=== PATIENT | female | born 1940 | race Caucasian/White ===

== ENCOUNTER 2018-03-26 09:22 | Inpatient (IN) | payer OTHER, MEDICARE ==
--- NOTE | 2018-03-26 09:50 | EDPHY ---
H & P Time Seen by Provider: 03/26/18 09:44 HPI/ROS: Chief complaint. Nausea vomiting and diarrhea HPI. A 77-year-old female nausea vomiting diarrhea for 3-4 weeks. It is worse with eating. She has"light pain" in the upper abdomen on occasion after eating. She has loose stools about twice per day. No blood. Previously she had been using a lot of of Aleve and ibuprofen for chronic right hip pain but over the past several months she has been using Tylenol at the encouragement of her regular physician. She has no chest discomfort or trouble breathing. She thinks possibly bad food was the initial cause. No recent travel. She does tell me she has a sensitive stomach to [place] and spicy food. She knows that tomato sauce cerna her stomach. She has had similar symptoms previously. ROS Constitutional. no fever/chills, no weakness Eyes. no problems with vision ENT. no sore throat, no nasal drainage Cardiovascular. no chest pain Respiratory. no shortness of breath, no cough Abdominal. Upper abdominal pain with nausea vomiting and diarrhea . no problems urinating MS. no calf pain/swelling, no neck/back pain, no joint pain Skin. no rash Lymph. no swollen glands Neuro. no headache, no dizziness, no difficulty walking or with speech Past Medical/Surgical History: Past medical history hypertension, dyslipidemia, arthritis Social History: , nonsmoker, no alcohol Smoking Status: Never smoked Physical Exam: General Appearance: Alert pleasant well-developed female mild distress vital signs significant for initial heart rate 106 Eyes: Pupils equal and round no pallor or injection. ENT, Mouth: Mucous membranes are moist. Respiratory: There are no retractions, lungs are clear to auscultation. Cardiovascular: Regular rate and rhythm. Gastrointestinal: Abdomen is soft with very mild tenderness in the epigastrium. No masses. Normal bowel sounds Neurological: Awake and alert, sensory and motor exams grossly normal. Skin: Warm and dry, no rashes. Musculoskeletal: Neck is supple nontender. Extremities symmetrical, full range of motion. Psychiatric: Patient is oriented X 3, there is no agitation. Constitutional: Initial Vital Signs Temperature (C) 36.8 C 03/26/18 09:28 Heart Rate 106 H 03/26/18 09:28 Respiratory Rate 16 03/26/18 09:28 Blood Pressure 115/84 H 03/26/18 09:28 O2 Sat (%) 91 L 03/26/18 09:28 O2 Delivery Mode Room Air Allergies/Adverse Reactions: No Known Allergies Allergy (Verified 03/26/18 09:27) Home Medications: Medication Instructions Recorded LORazepam [Ativan (*)] 0.25 mg PO DAILY PRN 12/27/15 Simvastatin [Zocor] 40 mg PO DAILY 12/27/15 Acetaminophen [Tylenol 325mg (*)] 325 mg PO DAILY PRN 03/26/18 Calcium Carbonate [Oyster Shell 500 mg PO DAILY 03/26/18 Calcium 500 mg (*)] Cephalexin [Keflex (*)] 500 mg PO TID 03/26/18 Hydrochlorothiazide [HCTZ (*)] 25 mg PO DAILY 03/26/18 Metoprolol Tartrate [Lopressor 25 25 mg PO BID 03/26/18 mg (*)] Ondansetron HCl [Zofran] 4 mg PO Q4HRS PRN 03/26/18 Medical Decision Making - Diagnostics Imaging Results: Imaging Impressions Abdomen Ultrasound 03/26/18 10:06 Impression: 1. Cholelithiasis with 3 large gallstones up to 4 cm, including one lodged in the gallbladder neck region. 2. No gallbladder wall thickening, pericholecystic fluid, or biliary ductal dilation. 3. Atherosclerotic tortuous aorta without aneurysm. Findings and recommendations discussed with Emergency Department physician, Topher Albright PA-C at 1108 hours on March 26, 2018. Final report concurs with initial preliminary interpretation. Patient on ultrasound of the right upper quadrant has multiple gallstones with a 4 cm stone impacted in the neck of her gallbladder. Common bile duct 5-6 mm in size Procedures: IV normal saline. Pepcid IV ED Course/Re-evaluation: The patient and I discussed imaging and lab results. We discussed treatment plan including recommendation for surgical consultation. She expresses understanding and agreement I consulted and discussed the case with Dr. Toussaint for surgery who will see the patient in the emergency department Dr. Joselin Rodriguez sees the patient in the emergency department. He recommends admission and surgery. Differential Diagnosis: I considered gastritis, electrolyte abnormalities, dehydration, gallbladder disease - Data Points Laboratory Results: Laboratory Results 03/26/18 09:30 03/26/18 09:30 03/26/18 03/26/18 09:30 09:30 WBC 11.46 10^3/uL H 10^3/uL (3.80-9.50) RBC 4.48 10^6/uL 10^6/uL (4.18-5.33) Hgb 13.0 g/dL g/dL (12.6-16.3) Hct 41.1 % % (38.0-47.0) MCV 91.7 fL fL (81.5-99.8) MCH 29.0 pg pg (27.9-34.1) MCHC 31.6 g/dL L g/dL (32.4-36.7) RDW 15.3 % H % (11.5-15.2) Plt Count 317 10^3/uL 10^3/uL (150-400) MPV 10.9 fL fL (8.7-11.7) Neut % (Auto) 74.6 % H % (39.3-74.2) Lymph % (Auto) 15.7 % % (15.0-45.0) [place] % (Auto) 8.4 % % (4.5-13.0) Eos % (Auto) 0.3 % L % (0.6-7.6) Baso % (Auto) 0.4 % % (0.3-1.7) Nucleat RBC Rel Count 0.0 % % (0.0-0.2) Absolute Neuts (auto) 8.54 10^3/uL H 10^3/uL (1.70-6.50) Absolute Lymphs (auto) 1.80 10^3/uL 10^3/uL (1.00-3.00) Absolute Monos (auto) 0.96 10^3/uL H 10^3/uL (0.30-0.80) Absolute Eos (auto) 0.04 10^3/uL 10^3/uL (0.03-0.40) Absolute Basos (auto) 0.05 10^3/uL 10^3/uL (0.02-0.10) Absolute Nucleated RBC 0.00 10^3/uL 10^3/uL (0-0.01) Immature Gran % 0.6 % % (0.0-1.1) Immature Gran # 0.07 10^3/uL 10^3/uL (0.00-0.10) Sodium 142 mEq/L mEq/L (135-145) Potassium 4.1 mEq/L mEq/L (3.3-5.0) Chloride 92 mEq/L L mEq/L (97-110) Carbon Dioxide 33 mEq/l H mEq/l (22-31) Anion Gap 17 mEq/L H mEq/L (8-16) BUN 32 mg/dL H mg/dL (7-23) Creatinine 1.7 mg/dL H mg/dL (0.6-1.0) Estimated GFR 29 Glucose 122 mg/dL H mg/dL (70-100) Calcium 9.8 mg/dL mg/dL (8.5-10.4) Total Bilirubin 1.3 mg/dL mg/dL (0.1-1.4) Conjugated Bilirubin 0.4 mg/dL mg/dL (0.0-0.5) Unconjugated Bilirubin 0.9 mg/dL mg/dL (0.0-1.1) AST 25 IU/L IU/L (14-46) ALT 22 IU/L IU/L (9-52) Alkaline Phosphatase 60 IU/L IU/L (38-126) Total Protein 8.5 g/dL H g/dL (6.3-8.2) Albumin 4.8 g/dL g/dL (3.5-5.0) Lipase 88 IU/L IU/L (23-300) Medications Given: Discontinued Medications Al Hydroxide/Mg Hydroxide (Maalox Susp) 30 ml PO ONCE ONE Stop: 03/26/18 10:06 Last Admin: 03/26/18 10:54 Dose: 30 ml Sodium Chloride (Ns) 1,000 mls @ 0 mls/hr IV EDNOW ONE; Wide Open PRN Reason: Protocol Stop: 03/26/18 10:06 Last Admin: 03/26/18 10:53 Dose: 1,000 mls Famotidine/Sodium Chloride (Pepcid 20 Mg (Premix)) 50 mls @ 200 mls/hr IV EDNOW ONE Stop: 03/26/18 10:19 Last Admin: 03/26/18 10:53 Dose: 50 mls Lidocaine (Lidocaine 2% Viscous) 15 ml PO ONCE ONE Stop: 03/26/18 10:06 Last Admin: 03/26/18 10:54 Dose: 15 ml Departure - Departure Disposition: [facility] Acute Clinical Impression: Abdominal pain Qualifiers: Abdominal location: upper abdomen, unspecified Qualified Code(s): R10.10 - Upper abdominal pain, unspecified Cholelithiasis Qualifiers: Cholelithiasis location: gallbladder and bile duct Cholecystitis presence: without cholecystitis Biliary obstruction: with biliary obstruction Qualified Code(s): K80.71 - Calculus of gallbladder and bile duct without cholecystitis with obstruction Condition: Fair
[2018-03-26] MEDS ORDERED: FAMOTIDINE 20 MG/NACL 50 ML IV ONE (10:05)
[2018-03-26] MEDS ORDERED: MAG HYDROX/AL HYDROX/SIMETH 30 ML UDCUP PO ONE (10:05)
[2018-03-26] MEDS ORDERED: LIDOCAINE 2% VISCOUS 15 ML UDCUP PO ONE (10:05)
[2018-03-26] MEDS ORDERED: NS 1,000 ML IV ONE (10:05)
[2018-03-26 10:13] LABS: PLATELET COUNT 317 10^3/uL (150-400)
[2018-03-26] MEDS ORDERED: ONDANSETRON 4 MG/2 ML VIAL IVP PRN ×2 (13:44→17:01)
[2018-03-26] MEDS ORDERED: TEMAZEPAM 15 MG CAP PO PRN (13:44)
[2018-03-26] MEDS ORDERED: HYDROmorphONE/DILAUDID 1 MG/ML INJ IVP PRN (13:44)
--- NOTE | 2018-03-26 13:49 | PDGENHP ---
History and Physical - Chief Complaint Abdominal pain, nausea - History of Present Illness This is a 77-year-old woman who presents with 1 month history of progressive nausea vomiting and diarrhea. Diarrhea and pain happened 2 hr postprandially and have the appearance of steatorrhea/biliary colic. The patient was seen by primary care physician thought to have urinary tract infection started on cephalexin. Symptoms have not abated. The patient presented to the emergency room for formal evaluation. Ultrasound demonstrated multiple gallstones largest being 4 cm 1 impacted in the neck of the gallbladder. The patient otherwise is in her baseline state of health. She has mild hypertension and hypercholesterolemia. History Information - Allergies/Home Medication List Allergies/Adverse Reactions: No Known Allergies Allergy (Verified 03/26/18 09:27) Home Medications: LORazepam [Ativan (*)] 0.25 mg PO DAILY PRN 12/27/15 [Last Taken Unknown] Simvastatin [Zocor] 40 mg PO DAILY 12/27/15 [Last Taken 03/26/18] Acetaminophen [Tylenol 325mg (*)] 325 mg PO DAILY PRN 03/26/18 [Last Taken Unknown] Calcium Carbonate [Oyster Shell Calcium 500 mg (*)] 500 mg PO DAILY 03/26/18 [ Last Taken Unknown] Cephalexin [Keflex (*)] 500 mg PO TID 03/26/18 [Last Taken 03/25/18 21:00] Hydrochlorothiazide [HCTZ (*)] 25 mg PO DAILY 03/26/18 [Last Taken 03/26/18] Metoprolol Tartrate [Lopressor 25 mg (*)] 25 mg PO BID 03/26/18 [Last Taken ] Ondansetron HCl [Zofran] 4 mg PO Q4HRS PRN 03/26/18 [Last Taken 03/26/18] I have personally reviewed and updated: medical history, social history, surgical history - Surgical History Reports: no pertinent surgical hx - Social History Smoking Status: Never smoked Review of Systems Review of Systems: ROS: 10pt was reviewed & negative except for what was stated in HPI & below Gastrointestinal: Reports: abdominal pain, abdominal distention, diarrhea, nausea Physical Exam Physical Exam: Temp Pulse Resp BP Pulse Ox 36.8 C 84 16 112/68 92 03/26/18 09:28 03/26/18 12:52 03/26/18 12:52 03/26/18 12:52 03/26/18 12:52 Constitutional: no apparent distress, obese Eyes: anicteric sclera, EOMI Ears, Nose, Mouth, Throat: hearing normal, no oral mucosal ulcers Cardiovascular: regular rate and rhythym, no murmur, rub, or gallop Peripheral Pulses: 2+: carotid (R), carotid (L), femoral (R), femoral (L), dorsalis-pedis (R), dorsalis-pedis (L) Respiratory: no respiratory distress, clear to auscultation Gastrointestinal: tenderness (Mild right upper quadrant/epigastrium), hepatosplenomegally Skin: warm, no rashes or abrasions Musculoskeletal: normal joint ROM, No muscular tenderness, No generalized weakness Neurologic: AAOx3, CN II-XII Intact Psychiatric: interacting appropriately Lymph, Heme, Immunologic: no cervical LAD, no supraclavicular LAD Lab Data & Imaging Review 03/26/18 09:30 03/26/18 09:30 WBC 11.46 10^3/uL (3.80-9.50) H 03/26/18 09:30 RBC 4.48 10^6/uL (4.18-5.33) 03/26/18 09:30 Hgb 13.0 g/dL (12.6-16.3) 03/26/18 09:30 Hct 41.1 % (38.0-47.0) 03/26/18 09:30 MCV 91.7 fL (81.5-99.8) 03/26/18 09:30 MCH 29.0 pg (27.9-34.1) 03/26/18 09:30 MCHC 31.6 g/dL (32.4-36.7) L 03/26/18 09:30 RDW 15.3 % (11.5-15.2) H 03/26/18 09:30 Plt Count 317 10^3/uL (150-400) 03/26/18 09:30 MPV 10.9 fL (8.7-11.7) 03/26/18 09:30 Neut % (Auto) 74.6 % (39.3-74.2) H 03/26/18 09:30 Lymph % (Auto) 15.7 % (15.0-45.0) 03/26/18 09:30 [place] % (Auto) 8.4 % (4.5-13.0) 03/26/18 09:30 Eos % (Auto) 0.3 % (0.6-7.6) L 03/26/18 09:30 Baso % (Auto) 0.4 % (0.3-1.7) 03/26/18 09:30 Nucleat RBC Rel Count 0.0 % (0.0-0.2) 03/26/18 09:30 Absolute Neuts (auto) 8.54 10^3/uL (1.70-6.50) H 03/26/18 09:30 Absolute Lymphs (auto) 1.80 10^3/uL (1.00-3.00) 03/26/18 09:30 Absolute Monos (auto) 0.96 10^3/uL (0.30-0.80) H 03/26/18 09:30 Absolute Eos (auto) 0.04 10^3/uL (0.03-0.40) 03/26/18 09:30 Absolute Basos (auto) 0.05 10^3/uL (0.02-0.10) 03/26/18 09:30 Absolute Nucleated RBC 0.00 10^3/uL (0-0.01) 03/26/18 09:30 Immature Gran % 0.6 % (0.0-1.1) 03/26/18 09:30 Immature Gran # 0.07 10^3/uL (0.00-0.10) 03/26/18 09:30 Sodium 142 mEq/L (135-145) 03/26/18 09:30 Potassium 4.1 mEq/L (3.3-5.0) 03/26/18 09:30 Chloride 92 mEq/L (97-110) L 03/26/18 09:30 Carbon Dioxide 33 mEq/l (22-31) H 03/26/18 09:30 Anion Gap 17 mEq/L (8-16) H 03/26/18 09:30 BUN 32 mg/dL (7-23) H 03/26/18 09:30 Creatinine 1.7 mg/dL (0.6-1.0) H 03/26/18 09:30 Estimated GFR 29 05/15/18 09:30 Glucose 122 mg/dL (70-100) H 03/26/18 09:30 Calcium 9.8 mg/dL (8.5-10.4) 03/26/18 09:30 Total Bilirubin 1.3 mg/dL (0.1-1.4) 03/26/18 09:30 Conjugated Bilirubin 0.4 mg/dL (0.0-0.5) 03/26/18 09:30 Unconjugated Bilirubin 0.9 mg/dL (0.0-1.1) 03/26/18 09:30 AST 25 IU/L (14-46) 03/26/18 09:30 ALT 22 IU/L (9-52) 03/26/18 09:30 Alkaline Phosphatase 60 IU/L (38-126) 03/26/18 09:30 Total Protein 8.5 g/dL (6.3-8.2) H 03/26/18 09:30 Albumin 4.8 g/dL (3.5-5.0) 03/26/18 09:30 Lipase 88 IU/L (23-300) 03/26/18 09:30 Imaging Review: Images personally reviewed on PACS. Agree with findings of multiple gallstones with stone lodged in the neck Imaging Impressions Abdomen Ultrasound 03/26/18 10:06 Impression: 1. Cholelithiasis with 3 large gallstones up to 4 cm, including one lodged in the gallbladder neck region. 2. No gallbladder wall thickening, pericholecystic fluid, or biliary ductal dilation. 3. Atherosclerotic tortuous aorta without aneurysm. Findings and recommendations discussed with Emergency Department physician, Topher Albright PA-C at 1108 hours on March 26, 2018. Final report concurs with initial preliminary interpretation. Assessment & Plan Assessment: Acute cholecystitis Hypertension Hyperlipidemia Chronic renal insufficiency Plan: Laparoscopic cholecystectomy. The risks benefits and alternatives to this treatment including antibiotic treatment and bowel rest have been outlined with the patient and her son all questions were addressed. Verbal confirmation of understanding was obtained prior to written consent. No antibiotics are needed for this particular disease process. Anticipate 24-48 hours in the hospital post surgery. All arrangements have been made. Admit to the hospital NPO IV fluids appropriate pain management given her age no nonsteroidal anti inflammatories will be prescribed. Creatinine is mildly elevated at 1.7 baseline is 1.2-1.3 no particular treatment will be needed decides gentle hydration.
[2018-03-26] MEDS ORDERED: LR 1,000 ML IV SCH (14:00)
[2018-03-26] MEDS ORDERED: LR 1,000 ML IV ONE (15:08)
[2018-03-26] MEDS ORDERED: BUPIVACAINE 0.5% 30 ML SDV ONE (16:26)
[2018-03-26] MEDS ORDERED: LIDOCAINE 1% 300 MG/30 ML SDV ONE (16:27)
[2018-03-26] MEDS ORDERED: DEXAMETHASONE 4 MG/ML VIAL IVP PRN (17:01)
[2018-03-26] MEDS ORDERED: HYDROmorphONE/DILAUDID 2 MG/ML INJ IVP PRN (17:01)
[2018-03-26] MEDS ORDERED: MIDAZOLAM 2 MG/2 ML VIAL IVP ONE (17:01)
[2018-03-26] MEDS ORDERED: NALOXONE HCL 0.4 MG/ML INJ IVP PRN (17:01)
[2018-03-26] MEDS ORDERED: HYDROCODONE/APAP 5/325 TAB PO PRN (17:01)
[2018-03-26] MEDS ORDERED: fentaNYL 100 MCG/2 ML INJ IVP PRN (17:01)
--- NOTE | 2018-03-26 17:02 | PDANEPAE ---
ANE History of Present Illness Denise Susanna THERON Past Medical History - Cardiovascular History Hx Hypertension: Yes Hx Arrhythmias: No Hx Chest Pain: No Hx Coronary Artery / Peripheral Vascular Disease: No Hx CHF / Valvular Disease: No Hx Palpitations: No - Pulmonary History Hx COPD: No Hx Asthma/Reactive Airway Disease: No Hx Recent Upper Respiratory Infection: No Hx Oxygen in Use at Home: No Hx Sleep Apnea: No - Neurologic History Hx Cerebrovascular Accident: No Hx Seizures: No Hx Dementia: No - Endocrine History Hx Diabetes: No - Renal History Hx Renal Disorders: No - Liver History Hx Hepatic Disorders: No - Neurological & Psychiatric Hx Hx Neurological and Psychiatric Disorders: No - Cancer History Hx Cancer: No - Congenital Disorder History Hx Congenital Disorders: No - GI History Hx Gastrointestinal Disorders: No - Chronic Pain History Chronic Pain: No - Surgical History Prior Surgeries: bilateral cataracts. L index finger tendon sx ANE Review of Systems Review of Systems: - Exercise capacity METS (RN): 3 METS ANE Patient History - Allergies Allergies/Adverse Reactions: No Known Allergies Allergy (Verified 03/26/18 09:27) - Home Medications Home Medications: LORazepam [Ativan (*)] 0.25 mg PO DAILY PRN 12/27/15 [Last Taken 2 Days Ago ~] Simvastatin [Zocor] 40 mg PO DAILY 12/27/15 [Last Taken 03/26/18] Acetaminophen [Tylenol 325mg (*)] 325 mg PO DAILY PRN 03/26/18 [Last Taken 03/25] Calcium Carbonate [Oyster Shell Calcium 500 mg (*)] 500 mg PO DAILY 03/26/18 [ Last Taken 03/25/18] Cephalexin [Keflex (*)] 500 mg PO TID 03/26/18 [Last Taken 03/25/18 21:00] Hydrochlorothiazide [HCTZ (*)] 25 mg PO DAILY 03/26/18 [Last Taken 03/26/18] Metoprolol Tartrate [Lopressor 25 mg (*)] 25 mg PO BID 03/26/18 [Last Taken ] Ondansetron HCl [Zofran] 4 mg PO Q4HRS PRN 03/26/18 [Last Taken 03/26/18] - NPO status NPO Since - Liquids (Date): 03/26/18 NPO Since - Liquids (Time): 11:00 NPO Since - Solids (Date): 03/26/18 NPO Since - Solids (Time): 08:30 - Smoking Hx Smoking Status: Never smoked - Family Anes Hx Family Hx Anesthesia Complications: none ANE Labs/Vital Signs - Labs Result Diagrams: 03/26/18 09:30 03/26/18 09:30 - Vital Signs Blood Pressure: 127/67 Heart Rate: 80 Respiratory Rate: 16 O2 Sat (%): 94 Height: 154.94 cm Weight: 68.039 kg ANE Physical Exam - Airway Neck exam: FROM Mallampati Score: Class 2 - Pulmonary Pulmonary: clear to auscultation - Cardiovascular Cardiovascular: regular rate and rhythym - ASA Status ASA Status: II ANE Anesthesia Plan Anesthesia Plan: general endotracheal anesthesia
[2018-03-26] MEDS ORDERED: PROPOFOL/EMULSION 500 MG/50 ML BOTTLE IV ONE (17:53)
[2018-03-26] MEDS ORDERED: fentaNYL 100 MCG/2 ML INJ ONE ×2 (18:04→19:04)
[2018-03-26] MEDS ORDERED: SUGAMMADEX SODIUM 200 MG/2 ML VIAL IVP ONE (18:51)
--- NOTE | 2018-03-26 19:16 | POSTOPPROG ---
Post Op Note Date of Operation: 03/26/18 Surgeon: Ramon Toussaint Anesthesiologist: Luisa Bone Anesthesia: GET(General Endotracheal) Pre-op Diagnosis: cholecystitis Post-op Diagnosis: same Procedure: Laparoscopic cholecystectomy Findings: acute cholecystitis Inf/Abcess present in the surg proc area at time of surgery?: No Depth: Organ Space Complications: none Specimen(s): gallbladder
--- NOTE | 2018-03-26 19:18 | POSTANESTH ---
Post Anesthetic Evaluation Cardiovascular Status: Normal, Stable Respiratory Status: Normal, Stable Level of Consciousness/Mental Status: Can Participate in Eval Pain Control: Adequate, Prn Tx Ordered Nausea/Vomiting Control: Adequate, Prn Tx Ordered Complications Possibly Related to Anesthesia: None Noted
--- NOTE | 2018-03-27 00:22 | GOP ---
[f rep st] OPERATIVE REPORT DATE OF OPERATION: SURGEON: Ramon Toussaint MD PATCH DRILLER: None. ANESTHESIOLOGIST: Dr. Adilson Bone. PREOPERATIVE DIAGNOSIS: Acute cholecystitis. POSTOPERATIVE DIAGNOSIS: Acute cholecystitis. PROCEDURE PERFORMED: Laparoscopic cholecystectomy. FINDINGS: SPECIMENS: Gallbladder to permanent pathology. Multiple large stones and inflammation are noted. INDICATIONS: This is a 77-year-old woman with persistent nausea, vomiting, abdominal pain, presents with a cystic obstruction in the neck of her gallbladder with a gallstone. DESCRIPTION OF PROCEDURE: The patient was brought to the operating room. After induction of endotra cheal anesthesia in supine position, her abdomen was prepped with chlorhexidine and draped sterilely. Time-out procedure was then performed according to institutional standards. Local anesthetic was i nfused in skin and subcutaneous tissues of the trocar site as well as the TAP block periumbilically. The abdomen was approached through an open supraumbilical trocar placement and the abdomen was then i nsufflated to 15 Torr with carbon dioxide. Working trocars were placed in the subxiphoid and the rig ht subcostal areas under direct visualization. The gallbladder was brought in the field of dissectio n. Left tilt and head-up positions are used to facilitate the dissection. Cystic duct and cystic ar gabriele are clearly defined in the triangle of Calot, and the peritoneum was divested. They were triply clipped and ligated. The gallbladder was taken off a relatively intrahepatic position using electro cautery. The gallbladder has several large stones. The umbilical incision had to be enlarged. A sm all umbilical hernia was repaired at the time of removal of the gallbladder and closure of the fascia . After hemostasis was assured, all trocars were removed. The fascia was reapproximated using 0 Abisai ryl, and all skin ports were reapproximated using 4-0 Monocryl. Dermabond was applied. The patient was awakened, extubated, taken to recovery room in stable condition. No immediate compli cation. Needle, instrument, and sponge counts verified to be correct x2. /[id number]/MODL
--- NOTE | 2018-03-27 07:54 | SOAPPROG ---
SOAP Progress Note Assessment/Plan: Assessment/Plan: Doing well AVSS inci c/d abd soft nt adv diet possible d/c later today 03/27/18 07:53 Objective: Vital Signs Temp Pulse Resp BP Pulse Ox 96.8 C H 68 16 101/65 99 03/26/18 21:00 03/27/18 04:16 03/27/18 04:16 03/27/18 04:16 03/27/18 04:16 03/26/18 03/27/18 03/28/18 05:59 05:59 05:59 Intake Total 2296 Output Total 3 Balance 2293 ICD10 Worksheet Patient Problems: Problems Problem Status Onset Abdominal pain Acute Cholelithiasis Acute
[2018-03-27] MEDS ORDERED: HYDROCODONE/APAP 5/325 TAB PO PRN (07:56)
[2018-03-27] MEDS ORDERED: IBUPROFEN 600 MG TAB PO PRN ×2 (07:56→08:01)
[2018-03-27] MEDS ORDERED: NON-FORMULARY NEW DRUG (Simvastatin [Zocor] 40 MG) PO SCH (09:00)
[2018-03-27] MEDS: METOPROLOL TARTRATE 25 MG TAB PO SCH ×2 (09:45→20:42)
[2018-03-27] MEDS: HYDROCHLOROTHIAZIDE 25 MG TAB PO SCH (09:45)
[2018-03-27] MEDS: CALCIUM CARBONATE 500 MG TAB PO SCH (09:46)
[2018-03-27] MEDS: ATORVASTATIN CALCIUM 20 MG TAB PO SCH (09:46)
[2018-03-27] MEDS: ACETAMINOPHEN 325 MG TAB PO PRN (14:31)
[2018-03-28 07:55] VITALS: BP 127/86
[2018-03-28] MEDS: METOPROLOL TARTRATE 25 MG TAB PO SCH (09:03)
[2018-03-28] MEDS: HYDROCHLOROTHIAZIDE 25 MG TAB PO SCH (09:03)
[2018-03-28] MEDS: CALCIUM CARBONATE 500 MG TAB PO SCH (09:03)
[2018-03-28] MEDS: ATORVASTATIN CALCIUM 20 MG TAB PO SCH (09:03)
[2018-03-28] MEDS: ACETAMINOPHEN 325 MG TAB PO PRN (09:05)
[2018-03-28] MEDS ORDERED: PNEUMOC 13-VAL CONJ-DIP CRM/PF 0.5 ML SYR IM ONE (10:22)
--- NOTE | 2018-03-28 15:09 | PDMN ---
Medical Necessity Medical necessity: change to IP; los>2mn for acute cholecystitis w/stone impacted in gallbladder neck, s/p lap truong, unscheduled, r/t continued pain and severe weakness; per order 03/27/18
== END 2018-03-28 13:10 | disposition home or self-care (01) | DRG 419 ==
LOC: INTOOBSV 13:12 → OBSVTOIN 13:12 → F1N 20:00
PROVIDERS: ADMIT Surgery; ATTEND Surgery
PROC: 0FT44ZZ Resection of Gallbladder, Percutaneous Endoscopic Approach (ICD-10-PCS; principal; 2018-03-26 16:15)
DX: K80.10 Calculus of gallbladder with chronic cholecystitis without obstruction (principal); E78.00 Pure hypercholesterolemia, unspecified; I12.9 Hypertensive chronic kidney disease with stage 1 through stage 4 chronic kidney disease, or unspecified chronic kidney disease; N18.9 Chronic kidney disease, unspecified; Z23 Encounter for immunization
CPT/HCPCS: 96365; G0009; J2250; J2704; J3010

== ENCOUNTER 2018-04-01 20:31 | Observation (INO) | payer OTHER, MEDICARE ==
[2018-04-01] MEDS ORDERED: ONDANSETRON 4 MG/2 ML VIAL IVP ONE (20:49)
[2018-04-01] MEDS ORDERED: NS 1,000 ML IV ONE (20:49)
--- NOTE | 2018-04-01 20:52 | EDPHY ---
H & P Stated Complaint: cholecystectomy on 03/26 vomiting since Time Seen by Provider: 04/01/18 20:43 HPI/ROS: CHIEF COMPLAINT: Vomiting HISTORY OF PRESENT ILLNESS: Patient is a 77-year-old female who is 6 days postoperative for laparoscopic cholecystectomy by Dr. Toussaint. Patient and her family states that she has been vomiting ever since the surgery. She has had a small amount of diarrhea over the last couple of days as well. No fever. No blood in her vomit or stool. She is able to pass gas. She denies abdominal pain. She has not had an appetite however in her senses he cannot get her to eat. No chest pain or shortness of breath. REVIEW OF SYSTEMS: Constitutional: denies: chills, fever, recent illness, recent injury EENTM: denies: blurred vision, double vision, nose congestion Respiratory: denies: cough, shortness of breath Cardiac: denies: chest pain, irregular heart rate, lightheadedness, palpitations Gastrointestinal/Abdominal: See HPI Genitourinary: denies: dysuria, frequency, hematuria, pain Musculoskeletal: denies: joint pain, muscle pain Skin: denies: lesions, rash, jaundice, bruising Neurological: denies: headache, numbness, paresthesia, tingling, dizziness, weakness Hematologic/Lymphatic: denies: blood clots, easy bleeding, easy bruising Immunologic/allergic: denies: HIV/AIDS, transplant EXAM: GENERAL: Well-appearing, obese and in no acute distress. HEAD: Atraumatic, normocephalic. EYES: Pupils equal round and reactive to light, extraocular movements intact, sclera anicteric, conjunctiva are normal. ENT: TMs normal, nares patent, oropharynx clear without exudates. Moist mucous membranes. NECK: Normal range of motion, supple without lymphadenopathy or JVD. LUNGS: Breath sounds clear to auscultation bilaterally and equal. No wheezes rales or rhonchi. HEART: Regular rate and rhythm without murmurs, rubs or gallops. ABDOMEN: Wounds clean dry and intact, no erythema or drainage. Soft, nontender , normoactive bowel sounds. No guarding, no rebound. No masses appreciated. BACK: No CVA tenderness, no spinal tenderness, step-offs or deformities EXTREMITIES: Normal range of motion, no pitting or edema. No clubbing or cyanosis. NEUROLOGICAL: Cranial nerves II through XII grossly intact. Normal speech, normal gait. 5/5 strength, normal movement in all extremities, normal sensation PSYCH: Normal mood, normal affect. SKIN: Warm, dry, normal turgor, no visible rashes or lesions. Source: Patient Exam Limitations: No limitations - Personal History Current Tetanus/Diphtheria Vaccine: Yes Current Tetanus Diphtheria and Acellular Pertussis (TDAP): Yes - Medical/Surgical History Hx Asthma: No Hx Chronic Respiratory Disease: No Hx Diabetes: No Hx Cardiac Disease: No Hx Renal Disease: No Hx Cirrhosis: No Hx Alcoholism: No Hx HIV/AIDS: No Hx Splenectomy or Spleen Trauma: No Other PMH: htn, arthritis, rt hip pain,cholecystectomy - Family History Significant Family History: No pertinent family hx - Social History Smoking Status: Never smoked Alcohol Use: Sober Drug Use: None Constitutional: Initial Vital Signs Temperature (C) 36.6 C 04/01/18 20:33 Heart Rate 88 04/01/18 20:33 Respiratory Rate 16 04/01/18 20:33 Blood Pressure 106/71 04/01/18 20:33 O2 Sat (%) 90 L 04/01/18 20:33 O2 Delivery Mode Room Air Allergies/Adverse Reactions: No Known Allergies Allergy (Verified 04/01/18 20:37) Home Medications: Medication Instructions Recorded LORazepam [Ativan (*)] 0.25 mg PO DAILY PRN 12/27/15 Simvastatin [Zocor] 40 mg PO DAILY 12/27/15 Acetaminophen [Tylenol 325mg (*)] 325 mg PO DAILY PRN 03/26/18 Calcium Carbonate [Oyster Shell 500 mg PO DAILY 03/26/18 Calcium 500 mg (*)] Cephalexin [Keflex (*)] 500 mg PO TID 03/26/18 Hydrochlorothiazide [HCTZ (*)] 25 mg PO DAILY 03/26/18 Metoprolol Tartrate [Lopressor 25 25 mg PO BID 03/26/18 mg (*)] Ondansetron HCl [Zofran] 4 mg PO Q4HRS PRN 03/26/18 Strong-3 Fatty Acids [Fish Oil 1000 1,000 mg PO DAILY 04/01/18 mg (*)] Medical Decision Making ED Course/Re-evaluation: 9:[address] Figueroa is here to evaluate the patient and recommends we will hold off on CT scan at this point. 9:[address] Figueroa will plan to admit the patient for hydration and observation. If her renal function is significantly elevated he will also his consult the hospitalist 10:00 p.m. The patient's lab work is reassuring. Her creatinine is essentially baseline. Differential Diagnosis: Partial list of the Differential diagnosis considered include but were not limited to; dehydration, vomiting, medication reaction and although unlikely based on the history and physical exam, I also considered obstruction, volvulus , perforation. I discussed these differential diagnoses and the plan with the patient as well as the usual and expected course. The patient understands that the diagnosis is provisional and that in medicine we are not always correct and that further workup is often warranted. Usual and customary warnings were given. All of the patient's questions were answered. The patient was instructed to return to the emergency department should the symptoms at all worsen or return, otherwise to followup with the physician as we discussed. - Data Points Laboratory Results: Laboratory Results 04/01/18 21:30 04/01/18 21:30 04/01/18 04/01/18 21:30 21:30 WBC 12.96 10^3/uL H 10^3/uL (3.80-9.50) RBC 4.33 10^6/uL 10^6/uL (4.18-5.33) Hgb 12.5 g/dL L g/dL (12.6-16.3) Hct 39.2 % % (38.0-47.0) MCV 90.5 fL fL (81.5-99.8) MCH 28.9 pg pg (27.9-34.1) MCHC 31.9 g/dL L g/dL (32.4-36.7) RDW 15.2 % % (11.5-15.2) Plt Count 399 10^3/uL 10^3/uL (150-400) MPV 11.0 fL fL (8.7-11.7) Neut % (Auto) 67.4 % % (39.3-74.2) Lymph % (Auto) 19.3 % % (15.0-45.0) [place] % (Auto) 11.0 % % (4.5-13.0) Eos % (Auto) 0.4 % L % (0.6-7.6) Baso % (Auto) 0.6 % % (0.3-1.7) Nucleat RBC Rel Count 0.0 % % (0.0-0.2) Absolute Neuts (auto) 8.73 10^3/uL H 10^3/uL (1.70-6.50) Absolute Lymphs (auto) 2.50 10^3/uL 10^3/uL (1.00-3.00) Absolute Monos (auto) 1.43 10^3/uL H 10^3/uL (0.30-0.80) Absolute Eos (auto) 0.05 10^3/uL 10^3/uL (0.03-0.40) Absolute Basos (auto) 0.08 10^3/uL 10^3/uL (0.02-0.10) Absolute Nucleated RBC 0.00 10^3/uL 10^3/uL (0-0.01) Immature Gran % 1.3 % H % (0.0-1.1) Immature Gran # 0.17 10^3/uL H 10^3/uL (0.00-0.10) Sodium 136 mEq/L mEq/L (135-145) Potassium 4.1 mEq/L mEq/L (3.3-5.0) Chloride 90 mEq/L L mEq/L (97-110) Carbon Dioxide 27 mEq/l mEq/l (22-31) Anion Gap 19 mEq/L H mEq/L (8-16) BUN 51 mg/dL H mg/dL (7-23) Creatinine 1.5 mg/dL H mg/dL (0.6-1.0) Estimated GFR 33 Glucose 137 mg/dL H mg/dL (70-100) Calcium 8.8 mg/dL mg/dL (8.5-10.4) Total Bilirubin 1.2 mg/dL mg/dL (0.1-1.4) Conjugated Bilirubin 0.6 mg/dL H mg/dL (0.0-0.5) Unconjugated Bilirubin 0.6 mg/dL mg/dL (0.0-1.1) AST 26 IU/L IU/L (14-46) ALT 22 IU/L IU/L (9-52) Alkaline Phosphatase 70 IU/L IU/L (38-126) Total Protein 7.6 g/dL g/dL (6.3-8.2) Albumin 4.2 g/dL g/dL (3.5-5.0) Lipase 343 IU/L H IU/L (23-300) Medications Given: Discontinued Medications Sodium Chloride (Ns) 1,000 mls @ 0 mls/hr IV EDNOW ONE; Wide Open PRN Reason: Protocol Stop: 04/01/18 20:50 Last Admin: 04/01/18 21:36 Dose: 1,000 mls Ondansetron HCl (Zofran) 4 mg IVP EDNOW ONE Stop: 04/01/18 20:50 Last Admin: 04/01/18 21:36 Dose: 4 mg Departure - Departure Disposition: [facility] Inpatient Acute Clinical Impression: Dehydration Vomiting Qualifiers: Vomiting type: unspecified Vomiting Intractability: non-intractable Nausea presence: with nausea Qualified Code(s): R11.2 - Nausea with vomiting, unspecified Condition: Good
[2018-04-01 21:38] LABS: PLATELET COUNT 399 10^3/uL (150-400)
[2018-04-01] MEDS ORDERED: LORazepam 0.5 MG TAB PO PRN (22:12)
[2018-04-01] MEDS ORDERED: ACETAMINOPHEN 325 MG TAB PO PRN (22:12)
[2018-04-01] MEDS ORDERED: PROMETHAZINE HCL 25 MG/ML INJ IVP PRN (22:13)
[2018-04-01] MEDS ORDERED: D5W NS 1,000 ML IV SCH (22:15)
--- NOTE | 2018-04-01 22:55 | GHP ---
[f rep st] PREOP HISTORY AND PHYSICAL DATE OF ADMISSION: 04/01/2018 REASON FOR ADMISSION: Postoperative nausea and vomiting. HISTORY OF PRESENT ILLNESS: 77-year-old female with significant history of chronic renal insufficiency. She underwent a laparoscopic cholecystectomy on March 26, 2018, for acute cholecystitis. She had a benign postoperative course. She was discharged to home 2 days later. Since being at home, she has had persistent nausea and vomiting and inability to tolerate oral intake. She denies fevers or chills. She denies voiding complaints. She denies back pain. She reports minimal abdominal pain. She presented to the emergency room this evening for further assessment. She is being admitted at this time for fluid resuscitation, antiemetics and further workup. PAST MEDICAL HISTORY: Hypertension, hyperlipidemia, chronic renal insufficiency. PAST SURGICAL HISTORY: Laparoscopic cholecystectomy, bilateral cataract repair , left index finger tendon surgery. HOME MEDICATIONS: Ativan, Zocor, Tylenol, calcium, hydrochlorothiazide, Lopressor. ALLERGIES: No known drug allergies. SOCIAL HISTORY: No alcohol, no tobacco. REVIEW OF SYSTEMS: Notable for recent GI complaints as noted above. FAMILY HISTORY: Noncontributory. PHYSICAL EXAMINATION: VITAL SIGNS: Temperature 36. Blood pressure 108/72, pulse 74, respirations 16. GENERAL APPEARANCE: The patient is alert, appropriate, comfortable, ambulating independently. HEENT: Anicteric. LYMPH NODES: No cervical or supraclavicular lymphadenopathy. HEART: Regular. LUNGS : Clear. ABDOMEN: Soft, minimally distended. Incisions clean without erythema. Minimal tenderness to palpation. No rebound. No guarding. No Kat sign. No fluid wave. EXTREMITIES: Without edema. NEUROLOGIC: Alert, appropriate. SKIN: With good turgor and nondecompressed veins. LABORATORY DATA: White count 13, hemoglobin 13, platelets of 400. Electrolytes : 136 sodium, potassium 4.1, chloride 90, CO2 27, BUN 51, creatinine 1.5, glucose 137, alkaline phosphatase 70, AST 26, total bilirubin 1.2, lipase 343. IMPRESSION: 1. Postoperative nausea and vomiting. 2. Mildly elevated lipase. PLAN: Patient is being admitted for further fluid resuscitation and antiemetics. Will repeat labs including lipase in a.m. The patient clinically does not have a suggestion of acute pancreatitis. Her transaminases are normal , and her LFTs were not elevated preoperatively. Her creatinine has at baseline 1.5. Care plan and recommendations were discussed with the patient and family at bedside as well as with emergency room physician operations controller. /[id number]/MODL MTDD
[2018-04-02 08:18] VITALS: BP 108/57
[2018-04-02] MEDS ORDERED: OMEGA-3 FATTY ACIDS 1,000 MG CAP PO SCH (09:00)
[2018-04-02] MEDS ORDERED: HYDROCHLOROTHIAZIDE 25 MG TAB PO SCH (09:00)
[2018-04-02] MEDS ORDERED: METOPROLOL TARTRATE 25 MG TAB PO SCH (09:00)
--- NOTE | 2018-04-02 09:12 | ASMTCASEMG ---
Living Arrangements What is your living Answers: Alone arrangement? Who do you live with? Type Of Residence What kind of residence do Answers: House you live in? Discharge Plan Comments Coordination Status Comments Notes: Pt is a 77 y/o female admitted for vomiting and dehydration. Pt had a laparoscopic cholecystectomy on 03/26/18 for acute cholecystitis. Pt was d/c 2 days later. OT has been ordered and awaiting recommendations. Pt will most likely d/c independent when medically stable. CM available for changes. Plan: Independent Date Signed: 04/02/2018 09:11 AM Electronically Signed By:JANICE Umanzor
--- NOTE | 2018-04-02 15:30 | SOAPPROG ---
SOAP Progress Note Assessment/Plan: Assessment:feeling much better. no nausea or vomiting. hungry. avss. comfortable. abd soft, nontender. lft/lipase normal. PONV - improved with fluids/antiemetics. home today. follow-up as scheduled. Plan: 04/02/18 15:28 Objective: Vital Signs Temp Pulse Resp BP Pulse Ox 36.7 C 66 16 108/57 L 97 04/02/18 08:00 04/02/18 08:46 04/02/18 08:00 04/02/18 08:46 04/02/18 08:00 ICD10 Worksheet Patient Problems: Problems Problem Status Onset Dehydration Acute Vomiting Acute Abdominal pain Acute Cholelithiasis Acute
== END 2018-04-02 16:01 | disposition home or self-care (01) ==
LOC: UNDOADMOB 21:31 → F3E 22:30
PROVIDERS: ADMIT Surgery; ATTEND Surgery
DX: R11.2 Nausea with vomiting, unspecified (principal); I10 Essential (primary) hypertension; E78.5 Hyperlipidemia, unspecified; N18.9 Chronic kidney disease, unspecified
CPT/HCPCS: 97165; G0378; G8987; G8988; G8989; J2405; 96374

== ENCOUNTER 2018-04-03 23:32 | Emergency (ER) | payer OTHER, MEDICARE ==
[2018-04-04] MEDS ORDERED: FAMOTIDINE 20 MG/NACL 50 ML IV ONE (00:03)
--- NOTE | 2018-04-04 00:03 | EDPHY ---
H & P Stated Complaint: Abd pain, n/v, galbladder removed 03/26 Time Seen by Provider: 04/03/18 23:49 HPI/ROS: Chief Complaint: Nausea vomiting, upper chest pain HPI: 77-year-old woman who is status post cholecystectomy 03/[address] Toussaint. Patient has had persistent nausea vomiting. She was admitted on the and discharged yesterday. Patient states she has had persistent nausea and vomiting but also had some burning pain at the back of her throat and upper chest earlier today. No shortness of breath. No substernal chest pain. No fevers or chills. She has some mild abdominal pain which is unchanged. She states she has had a hard time keeping any fluids down today since her discharge from hospital. ROS: 10 point Review of Systems is negative except as noted in the HPI. PMH: Cholecystectomy, Social History: No smoking, no alcohol, no recreational drug use Family History: non-contributory Physical Exam: Gen: Awake, Alert, No Distress HEENT: Nose: no rhinorrhea Eyes: PERRLA, EOMI Mouth: Moist mucosa Neck: Supple, no JVD Chest: nontender, lungs clear to auscultation Heart: S1, S2 normal, no murmur Abd: Soft, non-tender, healing incisions from her surgery which are not erythematous dehisced or tender Back: no CVA tenderness, no midline tenderness Ext: no edema, non-tender Skin: no rash Neuro: CN II-XII intact, Sensation grossly intact, Strength 5/5 in bilateral upper and lower extremities - Personal History Current Tetanus Diphtheria and Acellular Pertussis (TDAP): Yes - Medical/Surgical History Hx Asthma: No Hx Chronic Respiratory Disease: No Hx Diabetes: No Hx Cardiac Disease: No Hx Renal Disease: No Hx Cirrhosis: No Hx Alcoholism: No Hx HIV/AIDS: No Hx Splenectomy or Spleen Trauma: No Other PMH: htn, arthritis, rt hip pain,cholecystectomy - Social History Smoking Status: Never smoked Constitutional: Initial Vital Signs Temperature (C) 37.0 C 04/03/18 23:37 Heart Rate 83 04/03/18 23:37 Respiratory Rate 18 04/03/18 23:37 Blood Pressure 119/84 H 04/03/18 23:37 O2 Sat (%) 94 04/03/18 23:37 O2 Delivery Mode Room Air Allergies/Adverse Reactions: No Known Allergies Allergy (Verified 04/03/18 23:41) Home Medications: Medication Instructions Recorded LORazepam [Ativan (*)] 0.25 mg PO DAILY PRN 12/27/15 Simvastatin [Zocor] 40 mg PO DAILY 12/27/15 Acetaminophen [Tylenol 325mg (*)] 325 mg PO DAILY PRN 03/26/18 Calcium Carbonate [Oyster Shell 500 mg PO DAILY 03/26/18 Calcium 500 mg (*)] Cephalexin [Keflex (*)] 500 mg PO TID 03/26/18 Hydrochlorothiazide [HCTZ (*)] 25 mg PO DAILY 03/26/18 Metoprolol Tartrate [Lopressor 25 25 mg PO BID 03/26/18 mg (*)] Ondansetron HCl [Zofran] 4 mg PO Q4HRS PRN 03/26/18 [place]-3 Fatty Acids [Fish Oil 1000 1,000 mg PO DAILY 04/01/18 mg (*)] Medical Decision Making ED Course/Re-evaluation: 77-year-old woman who had a cholecystectomy in the . She was been having persistent nausea and vomiting since. She was admitted 2 days ago and discharged yesterday. She has been tolerating p.o. At that time. She has a soft completely benign abdomen. Today she has had some epigastric pain with pain in her upper chest. This resolved Pepcid. She has normal ECG negative troponin after several hours of symptoms. I believe her symptoms are likely secondary to reflux or gastritis. Laboratory evaluations are unchanged for her priors and are unremarkable. I have discussed with Dr. Toussaint, patient's surgeon. She has an appoint with him later this morning. He is in agree with the plan to discharge patient home she has improved. He will follow up with her at her scheduled appointment later today. Have discussed at length with the patient and her son. They are in agreement with this plan. - Data Points Laboratory Results: Laboratory Results 04/03/18 23:30 04/03/18 23:30 04/03/18 04/03/18 04/03/18 23:30 23:30 23:30 WBC 9.67 10^3/uL H 10^3/uL (3.80-9.50) RBC 4.02 10^6/uL L 10^6/uL (4.18-5.33) Hgb 11.7 g/dL L g/dL (12.6-16.3) Hct 36.4 % L % (38.0-47.0) MCV 90.5 fL fL (81.5-99.8) MCH 29.1 pg pg (27.9-34.1) MCHC 32.1 g/dL L g/dL (32.4-36.7) RDW 15.1 % % (11.5-15.2) Plt Count 330 10^3/uL 10^3/uL (150-400) MPV 11.2 fL fL (8.7-11.7) Neut % (Auto) 62.3 % % (39.3-74.2) Lymph % (Auto) 22.9 % % (15.0-45.0) [place] % (Auto) 11.4 % % (4.5-13.0) Eos % (Auto) 1.4 % % (0.6-7.6) Baso % (Auto) 0.6 % % (0.3-1.7) Nucleat RBC Rel Count 0.0 % % (0.0-0.2) Absolute Neuts (auto) 6.02 10^3/uL 10^3/uL (1.70-6.50) Absolute Lymphs (auto) 2.21 10^3/uL 10^3/uL (1.00-3.00) Absolute Monos (auto) 1.10 10^3/uL H 10^3/uL (0.30-0.80) Absolute Eos (auto) 0.14 10^3/uL 10^3/uL (0.03-0.40) Absolute Basos (auto) 0.06 10^3/uL 10^3/uL (0.02-0.10) Absolute Nucleated RBC 0.00 10^3/uL 10^3/uL (0-0.01) Immature Gran % 1.4 % H % (0.0-1.1) Immature Gran # 0.14 10^3/uL H 10^3/uL (0.00-0.10) Sodium 137 mEq/L mEq/L (135-145) Potassium 3.5 mEq/L mEq/L (3.3-5.0) Chloride 90 mEq/L L mEq/L (97-110) Carbon Dioxide 32 mEq/l H mEq/l (22-31) Anion Gap 15 mEq/L mEq/L (8-16) BUN 30 mg/dL H mg/dL (7-23) Creatinine 1.2 mg/dL H mg/dL (0.6-1.0) Estimated GFR 43 Glucose 115 mg/dL H mg/dL (70-100) Calcium 9.3 mg/dL mg/dL (8.5-10.4) Total Bilirubin 1.1 mg/dL mg/dL (0.1-1.4) AST 25 IU/L IU/L (14-46) ALT 30 IU/L IU/L (9-52) Alkaline Phosphatase 62 IU/L IU/L (38-126) Troponin I < 0.012 ng/mL ng/mL (0.000-0.034) Total Protein 6.9 g/dL g/dL (6.3-8.2) Albumin 3.8 g/dL g/dL (3.5-5.0) Lipase 421 IU/L H IU/L (23-300) Medications Given: Discontinued Medications Famotidine/Sodium Chloride (Pepcid 20 Mg (Premix)) 50 mls @ 200 mls/hr IV EDNOW ONE Stop: 04/04/18 00:17 Last Admin: 04/04/18 00:22 Dose: 50 mls Sodium Chloride (Ns) 1,000 mls @ 0 mls/hr IV ONCE ONE PRN Reason: Wide Open Stop: 04/04/18 01:01 Last Admin: 04/04/18 01:03 Dose: 1,000 mls Ondansetron HCl (Zofran) 4 mg IVP EDNOW ONE Stop: 04/04/18 01:01 Last Admin: 04/04/18 01:04 Dose: 4 mg Departure - Departure Disposition: Home, Routine, Self-Care Clinical Impression: GERD (gastroesophageal reflux disease), Nausea Condition: Good Instructions: Acute Nausea and Vomiting (ED) Additional Instructions: Follow up with Dr. Toussaint later this morning is scheduled appointment. Referrals: Ramon Toussaint MD [Medical Doctor] - As per Instructions
[2018-04-04 00:05] LABS: PLATELET COUNT 330 10^3/uL (150-400)
--- NOTE | 2018-04-04 00:36 | CPEKG ---
Heart Rate: 70 RR Interval: 857 P-R Interval: 192 QRSD Interval: 84 QT Interval: 432 QTC Interval: 467 P Boss: 62 QRS Boss: 32 T Wave Boss: 40 EKG Severity - NORMAL ECG - EKG Impression: SINUS RHYTHM Electronically Signed By: Flakito Levine 04-Apr-2018 03:46:37
[2018-04-04] MEDS ORDERED: NS 1,000 ML IV ONE (01:00)
[2018-04-04] MEDS ORDERED: ONDANSETRON 4 MG/2 ML VIAL IVP ONE (01:00)
[2018-04-04 01:41] VITALS: BP 113/61
== END 2018-04-04 01:43 | disposition home or self-care (01) ==
LOC: EDBD → EDUNIT#
DX: K21.9 Gastro-esophageal reflux disease without esophagitis (principal); I10 Essential (primary) hypertension
CPT/HCPCS: 93005; 96361; 96365; 96375; 99284; J2405